=== PATIENT | male | born 1975 | race American Indian/Alaskan Native ===

== ENCOUNTER 2018-10-10 08:54 | Emergency (ER) | payer SELFPAY ==
[2018-10-10] MEDS ORDERED: NORCO 5/325 PO ONE (09:18)
--- NOTE | 2018-10-10 09:25 | Emergency Department Report ---
HPI - General Chief Complaint: High BP Time Seen by Provider: 10/10/18 09:14 - HPI HPI: Room 19 The patient is a 43-year-old male presenting with a chief complaint of headache and dizziness. Patient states his symptoms began last night with a gradual on set diffuse headache. Patient describes the headache as throbbing in nature. Patient denies any preceding trauma nausea or vomiting. The patient states she's been intermittently compliant with his blood pressure medication but took hydrochlorothiazide and amlodipine this morning at 08:00 prior to arrival. The patient gives his pain a score of 5/10 Location: Head Duration: Constant Since yesterday Quality: Throbbing Severity: 5/10 Modifying factors: [see above] Context: [see above] Mode of transportation: [not driving] ED Past Medical Hx - Past Medical History Previous Medical History?: Yes Hx Hypertension: Yes - Surgical History Past Surgical History?: No - Family History Family history: no significant - Social History Smoking Status: Never Smoker Substance Use Type: None (denies illicit drug use) ED Review of Systems ROS: Stated complaint: HYPERTENSION/DIZZY Other details as noted in HPI Constitutional: no symptoms reported, fever Eyes: denies: eye pain ENT: denies: throat pain Respiratory: no symptoms reported Cardiovascular: denies: chest pain Endocrine: no symptoms reported Gastrointestinal: denies: abdominal pain, nausea, vomiting Genitourinary: denies: dysuria Musculoskeletal: denies: back pain Neurological: headache Physical Exam - Physical Exam Vital Signs: Vital Signs 10/10/18 09:09 Temperature 98.2 F Pulse Rate 87 Respiratory 18 Rate Blood Pressure 170/125 O2 Sat by Pulse 98 Oximetry Vital Signs 10/10/18 10/10/18 10/10/18 09:09 10:08 10:35 Temperature 98.2 F Pulse Rate 87 84 64 Respiratory 18 16 16 Rate Blood Pressure 170/125 Blood Pressure 164/127 174/126 [Left] O2 Sat by Pulse 98 100 95 Oximetry 10/10/18 10/10/18 10/10/18 10:36 11:02 11:49 Temperature Pulse Rate 64 73 Respiratory 16 Rate Blood Pressure 174/126 179/132 173/127 Blood Pressure 179/132 [Left] O2 Sat by Pulse 95 99 Oximetry 10/10/18 10/10/18 10/10/18 11:50 12:00 12:19 Temperature Pulse Rate 64 62 Respiratory 16 16 Rate Blood Pressure 165/125 Blood Pressure 173/127 148/114 [Left] O2 Sat by Pulse 98 97 98 Oximetry Physical Exam: GENERAL: The patient is well-developed well-nourished male lying on stretcher with comfort appearing to be in mild discomfort. [] HEENT: Normocephalic. Atraumatic. Extraocular motions are intact. Patient has moist mucous membranes. NECK: Supple. No meningitic signs are noted. Trachea midline CHEST/LUNGS: Clear to auscultation. There is no respiratory distress noted. HEART/CARDIOVASCULAR: Regular. There is no tachycardia. There is no gallop rub or murmur. ABDOMEN: Abdomen is soft, nontender. Patient has normal bowel sounds. There is no abdominal distention. SKIN: There is no rash. There is no edema. There is no diaphoresis. NEURO: The patient is awake, alert, and oriented. The patient is cooperative. The patient has no focal neurologic deficits. The patient has normal speech. Cranial nerves II through XII grossly intact, no drift MUSCULOSKELETAL: There is no evidence of acute injury. ED Course Vital Signs 10/10/18 09:09 Temperature 98.2 F Pulse Rate 87 Respiratory 18 Rate Blood Pressure 170/125 O2 Sat by Pulse 98 Oximetry ED Medical Decision Making - EKG Data -: EKG Interpreted by Mo EKG shows normal: sinus rhythm Rate: normal - EKG Data When compared to previous EKG there are: previous EKG unavailable Interpretation: nonspecific ST-T wave david (T-wave inversions in leads 1, aVL, V6) - Radiology Data Radiology results: report reviewed (CT head), image reviewed (CT head) [facility] [address] [place] [address] Cat Scan Report Signed Patient: OZ COTA MR#: [id number] 90 : 1975 Acct:[id number] Age/Sex: 43 / M ADM Date: 10/10/18 Loc: ED Attending Dr: Ordering Physician: KELLY HINSON MD Date of Service: 10/10/18 Procedure(s): CT head/brain wo con Accession Number(s): [id number] cc: KELLY HINSON MD CT scan of the head without IV contrast: History:, Hypertension. Findings: Ventricles are normal in size and midline in location. No evidence of acute ischemia, hemorrhage or mass. No extra-axial fluid collection. Normal brainstem and cerebellum. Incidentally noted ectatic vertebral and basilar arteries. No definite evidence of aneurysm. Impression: No acute intracranial abnormality. Transcribed By: PTP Dictated By: BRYN VERA MD Electronically Authenticated By: BRYN VERA MD Signed Date/Time: 10/10/18949 DD/ 8 TD/TT: 10/10/18949 - Differential Diagnosis hypertensive urgency, hypertensive emergency Critical care attestation.: If time is entered above; I have spent that time in minutes in the direct care of this critically ill patient, excluding procedure time. ED Disposition Clinical Impression: Headache, Hypertension Disposition: - TO HOME OR SELFCARE Is pt being admited?: No Does the pt Need Aspirin: No Condition: Stable Instructions: Hypertension (ED) Additional Instructions: Return to the emergency department immediately should you develop worsening symptoms, fever, inability to tolerate food or liquid or any other concerns. [facility]errals: [facility]Other] - 3-5 Days Time of Disposition: 12:28
--- NOTE | 2018-10-10 10:11 | Cat Scan Report ---
CT scan of the head without IV contrast: History:, Hypertension. Findings: Ventricles are normal in size and midline in location. No evidence of acute ischemia, hemorrhage or mass. No extra-axial fluid collection. Normal brainstem and cerebellum. Incidentally noted ectatic vertebral and basilar arteries. No definite evidence of aneurysm. Impression: No acute intracranial abnormality.
[2018-10-10] MEDS ORDERED: CATAPRES PO ONE ×3 (10:30→11:01)
[2018-10-10 12:20] VITALS: BP 148/114
== END 2018-10-10 13:01 | disposition home or self-care (01) ==
LOC: ED 08:54
DX: R51 Headache (principal); I10 Essential (primary) hypertension
CPT/HCPCS: 70450; 93005; 93010